=== PATIENT | female | born 1960 | race Caucasian/White ===

== ENCOUNTER → 2023-06-22 09:07 | Outpatient (REF) | payer BC, SELFPAY ==
[2023-06-22 10:59] LABS: ALT (SGPT) 28 U/L (0-35); AST (SGOT) 30 U/L (14-36); HDL Cholesterol 65 mg/dl; LDL Cholesterol, Calculated 90 mg/dl; Total Cholesterol 175 mg/dl (50-199); Triglyceride 102 mg/dl (10-149); Very Low Density Lipoprotein 20 mg/dl (0-30)
== END ==
LOC: REG 09:07
PROVIDERS: ATTENDING PHYSICIAN Internal Medicine
DX: E78.00 Pure hypercholesterolemia, unspecified (principal)
CPT/HCPCS: 36415; 80061; 84450; 84460

== ENCOUNTER 2023-10-01 11:00 | Outpatient (RCR) | payer OTHER, BC, SELFPAY | END 2023-10-01 23:59 | disposition home or self-care (01) | LOC: RPT 11:00 | PROVIDERS: ATTENDING PHYSICIAN Student in an Organized Health Care Education/Training Program; FAMILY PHYSICIAN Internal Medicine | DX: S92.021D Displaced fracture of anterior process of right calcaneus, subsequent encounter for fracture with routine healing (principal); S93.411D Sprain of calcaneofibular ligament of right ankle, subsequent encounter; R26.2 Difficulty in walking, not elsewhere classified; M25.571 Pain in right ankle and joints of right foot; Z73.6 Limitation of activities due to disability; S92.021A Displaced fracture of anterior process of right calcaneus, initial encounter for closed fracture | CPT/HCPCS: 97110; 97112; 97140; 97161 ==

== ENCOUNTER 2023-10-31 13:16 | Outpatient (RCR) | payer OTHER, BC, SELFPAY | END 2023-11-01 12:19 | disposition home or self-care (01) | LOC: RPT 13:16 | PROVIDERS: ATTENDING PHYSICIAN Student in an Organized Health Care Education/Training Program; FAMILY PHYSICIAN Internal Medicine | DX: S93.411D Sprain of calcaneofibular ligament of right ankle, subsequent encounter (principal); S92.021A Displaced fracture of anterior process of right calcaneus, initial encounter for closed fracture (principal); S92.021D Displaced fracture of anterior process of right calcaneus, subsequent encounter for fracture with routine healing; S93.411A Sprain of calcaneofibular ligament of right ankle, initial encounter; Z73.6 Limitation of activities due to disability | CPT/HCPCS: 97110; 97112 ==

== ENCOUNTER → 2024-01-22 08:13 | Outpatient (REF) | payer OTHER, BC, SELFPAY ==
[2024-01-22 09:14] LABS: % Basophils 0.7 % (0-2); % Eosinophils 3.1 % (0-6); % Immature Granulocytes 0.2 % (0-0.5); % Lymphocytes 48.5 % (20.5-51.1); % Neutrophils 38.5 % (42.2-75.2); Absolute Eosinophils 0.2 10^3/uL (0-0.7); Absolute Lymphocytes 2.7 10^3/uL (1.2-3.4); Absolute Monocytes 0.5 10^3/uL (0.1-0.6); Absolute Neutrophils 2.1 10^3/uL (1.4-6.5); Hematocrit 38.9 % (37.0-47.0); Hemoglobin 13.4 g/dL (12.0-16.0); Mean Corp Hgb Conc. 34.4 g/dL (33.0-37.0); Mean Corpuscular Hgb 29.8 pg (27.0-31.0); Mean Corpuscular Volume 86.6 fL (81.0-99.0); Mean Platelet Volume 9.6 fL (7.4-10.4); Nucleated Red Blood Cells % 0 %; Platelet Count 254 10^3/uL (130-400); Red Blood Cell Count 4.49 10^6/uL (4.20-5.40); Red Cell Dist. Width 11.9 % (11.5-14.5); White Blood Cell Count 5.6 10^3/uL (4.8-10.8)
[2024-01-22 09:54] LABS: ALT (SGPT) 21 U/L (0-35); AST (SGOT) 28 U/L (14-36); Albumin 4.4 g/dl (3.5-5.0); Alkaline Phosphatase 56 U/L (38-126); Blood Urea Nitrogen 16 mg/dl (7-17); Calcium 9.6 mg/dl (8.4-10.2); Carbon Dioxide 28 mmol/L (22-30); Chloride 103 mmol/L (98-107); Glucose 90 mg/dl (70-99); HDL Cholesterol 63 mg/dl; LDL Cholesterol, Calculated 164 mg/dl; Potassium 4.4 mmol/L (3.5-5.1); Sodium 141 mmol/L (135-145); Total Bilirubin 0.4 mg/dl (0.2-1.3); Total Cholesterol 246 mg/dl (50-199); Total Protein 7.1 g/dl (6.3-8.2); Triglyceride 95 mg/dl (10-149); Very Low Density Lipoprotein 19 mg/dl (0-30); eGFR > 60.00
[2024-01-22 10:16] LABS: TSH 2.02 uIU/ml (0.47-4.68)
== END ==
LOC: REG 08:13
PROVIDERS: ATTENDING PHYSICIAN Internal Medicine
DX: E78.2 Mixed hyperlipidemia (principal); D33.3 Benign neoplasm of cranial nerves
CPT/HCPCS: 36415; 80053; 80061; 84443; 85025

== ENCOUNTER → 2024-02-05 13:46 | Outpatient (REF) | payer BC, SELFPAY | LOC: WDC 13:46 | PROVIDERS: ATTENDING PHYSICIAN Obstetrics & Gynecology | DX: Z12.31 Encounter for screening mammogram for malignant neoplasm of breast (principal) | CPT/HCPCS: 77063; 77067 ==

== ENCOUNTER 2024-06-10 15:02 | Outpatient (RCR) | payer BC, SELFPAY | END 2024-06-10 23:59 | disposition home or self-care (01) | LOC: RPT 15:02 | PROVIDERS: ATTENDING PHYSICIAN Specialist; FAMILY PHYSICIAN Internal Medicine | DX: M22.41 Chondromalacia patellae, right knee (principal); Z73.6 Limitation of activities due to disability; M17.11 Unilateral primary osteoarthritis, right knee; R26.89 Other abnormalities of gait and mobility | CPT/HCPCS: 97110; 97140; 97162 ==

== ENCOUNTER 2024-07-07 14:56 | Outpatient (RCR) | payer BC, SELFPAY | END 2024-07-07 23:59 | disposition home or self-care (01) | LOC: RPT 14:56 | PROVIDERS: ATTENDING PHYSICIAN Specialist; FAMILY PHYSICIAN Internal Medicine | DX: M22.41 Chondromalacia patellae, right knee (principal); Z73.6 Limitation of activities due to disability | CPT/HCPCS: 97110; 97140 ==

== ENCOUNTER 2024-07-14 15:11 | Outpatient (RCR) | payer BC, SELFPAY | END 2024-07-14 23:59 | disposition home or self-care (01) | LOC: RPT 15:11 | PROVIDERS: ATTENDING PHYSICIAN Specialist; FAMILY PHYSICIAN Internal Medicine | DX: M22.41 Chondromalacia patellae, right knee (principal); Z73.6 Limitation of activities due to disability | CPT/HCPCS: 97110; 97140 ==

== ENCOUNTER → 2025-03-30 10:46 | Outpatient (REF) | payer BC, SELFPAY | LOC: WDC 10:46 | PROVIDERS: ATTENDING PHYSICIAN Obstetrics & Gynecology; FAMILY PHYSICIAN Internal Medicine | DX: Z12.31 Encounter for screening mammogram for malignant neoplasm of breast (principal) | CPT/HCPCS: 77063; 77067 ==

== ENCOUNTER → 2025-04-23 11:23 | Outpatient (REF) | payer BC, SELFPAY | LOC: MRI 3T 11:23 | PROVIDERS: ATTENDING PHYSICIAN Otolaryngology; FAMILY PHYSICIAN Internal Medicine | DX: H90.41 Sensorineural hearing loss, unilateral, right ear, with unrestricted hearing on the contralateral side (principal) | CPT/HCPCS: 70553; A9575 ==